=== PATIENT | female | born 1995 ===

== ENCOUNTER 2018-01-20 05:56 | Day surgery (SDC) | payer OTHER ==
[2018-01-20] MEDS ORDERED: Oxymetazoline 0.05% Nasal Spray (30 ml) NS ONE ×2 (06:46→07:49)
[2018-01-20] MEDS ORDERED: ceFAZolin 1 gm in NS 1 GM/100 ML BAG IVPB ONE (06:46)
[2018-01-20] MEDS ORDERED: Lidocaine/Epinephrine 1% 1:100000 10 ML IJ ONE (06:46)
[2018-01-20] MEDS ORDERED: Lactated Ringer's 1,000 ML IV ONE ×2 (07:30→09:45)
[2018-01-20] MEDS ORDERED: Acetaminophen-Codeine 300/30 mg Tab PO PRN (07:32)
[2018-01-20] MEDS ORDERED: Propofol 10 mg/ml Inj (20 ML) ONE (07:37)
[2018-01-20] MEDS ORDERED: Rocuronium 10 mg/ml (5 ml) ONE (07:37)
[2018-01-20] MEDS ORDERED: Dextrose 5%/0.45% NS 1,000 ML IV SCH (07:45)
[2018-01-20] MEDS ORDERED: Neostigmine Methylsulfate 3mg/3ml Syringe IV ONE (08:01)
[2018-01-20] MEDS ORDERED: HYDROmorphone 0.5 mg/0.5 ml ISec IVP PRN (09:13)
[2018-01-20 10:13] VITALS: RESP 15
[2018-01-20 11:04] VITALS: BP 112/56; PULSE 70; TEMP 97.8; O2SAT 100
--- NOTE | 2018-01-20 19:50 | OP ---
PROCEDURE DATE: 01/20/2018 PREOPERATIVE DIAGNOSES: Deviated septum, enlarged turbinates. POSTOPERATIVE DIAGNOSES Deviated septum, enlarged turbinates. PROCEDURE: Septoplasty, endoscopic bilateral inferior turbinate reduction. SIGNIFICANT FINDINGS: Deviated septum, enlarged turbinates. PROCEDURE: The patient was brought into the room, placed in supine position. Anesthesia initiated through an ET tube. The patient was draped in the usual manner. Afrin soaked pledgets were inserted into the nasal cavity, remained there for 5 minutes and removed. The septum was injected with lidocaine with epinephrine on both sides. A [place] Incision was made on the left and mucoperichondrial flap was raised. A vertical incision was made in the cartilage, leaving 0.5 cm anterior and superior strut and mucoperichondrial flap was raised on the other side. Deviated portion of the cartilage and bone was removed using forceps and chisel. Perforation was made in the flap on the left posteriorly, inferiorly in order to drain any possible hematoma. Quilting suture was used to suture the two flaps together and close the [place] incision. Next, a zero degree scope was inserted into the nasal cavity. The inferior turbinates were noted to be enlarged and reduced in size using scissors going from an inferior to superior, anterior to posterior direction on both sides, first on the left and then on the right. Bleeding was controlled using suction cautery on both sides. Splints were placed. The patient was taken off anesthesia and taken to the recovery room in stable manner. Red Jimenez MD
== END 2018-01-20 10:50 | disposition home or self-care (01) ==
LOC: C.SDS 05:56
PROVIDERS: ATTEND Otolaryngology
DX: J34.2 Deviated nasal septum (principal); J34.3 Hypertrophy of nasal turbinates
CPT/HCPCS: 30520; 30801; 88304; J0690; J2001; J2405; J2704; J2710; J2765; J3010; J7120

== ENCOUNTER 2018-03-15 18:09 | Emergency (ER) | payer OTHER ==
[2018-03-15 18:25] VITALS: TEMP 99.3; O2SAT 98
--- NOTE | 2018-03-15 19:46 | C.PDOC ---
Time Seen by Provider: 03/15/18 18:52 Chief Complaint (Nursing): Anxiety Past Medical History Vital Signs: Last Vital Signs Temp 99.3 F 03/15/18 18:19 Pulse 74 03/15/18 18:19 Resp 20 03/15/18 18:19 BP 132/80 03/15/18 18:19 Pulse Ox 98 03/15/18 18:19 - Medical History PMH: - Social History Hx Alcohol Use: No Hx Substance Use: No ED Course And Treatment O2 Sat by Pulse Oximetry: 98 Disposition - Disposition
--- NOTE | 2018-03-15 19:47 | C.PDOC ---
History Of Present Illness 22 y/o female presents to ED with c/o left sided sore throat and runny nose for 1 week. Patient states she became anxious while talking to boyfriend shortly before arrival and experienced tingling around mouth and fingers associated with palpitations. pt reports fingers on both hands cramped up, but this has since resolved. Patient states most symptoms subsided and only c/o mild tingling to fingers. Patient denies chest pain, fever, sob, or any other complaints at this time. no prior similar episodes. Time Seen by Provider: 03/15/18 18:52 Chief Complaint (Nursing): Anxiety History Per: Patient History/Exam Limitations: no limitations Onset/Duration Of Symptoms: Days Current Symptoms Are (Timing): Still Present Past Medical History Reviewed: Historical Data, Nursing Documentation, Vital Signs Vital Signs: Last Vital Signs Temp 99.3 F 03/15/18 18:19 Pulse 85 03/15/18 20:30 Resp 16 03/15/18 20:30 BP 125/85 03/15/18 20:30 Pulse Ox 98 03/16/18 16:38 - Medical History PMH: No Chronic Diseases Surgical History: No Surg Hx Family History: States: No Known Family Hx - Social History Hx Alcohol Use: No Hx Substance Use: No Review Of Systems Constitutional: Negative for: Fever, Chills ENT: Positive for: Throat Pain Cardiovascular: Positive for: Palpitations. Negative for: Chest Pain Respiratory: Negative for: Cough, Shortness of Breath Skin: Negative for: Rash Physical Exam - Physical Exam Appears: Non-toxic, No Acute Distress Skin: Warm, Dry, No Rash Head: Atraumatic, Normacephalic Eye(s): bilateral: Normal Inspection Ear(s): Bilateral: Normal Nose: No Discharge Oral Mucosa: Moist Throat: Erythema (mild), No Exudate, No Drooling Cardiovascular: Rhythm Regular Respiratory: Normal Breath Sounds, No Rales, No Rhonchi, No Wheezing Extremity: Normal ROM, Capillary Refill (<2 seconds), Other (no spasming to fingers, from bilateral hands) Neurological/Psych: Oriented x3, Normal Speech, Normal Cognition, Normal Motor, Normal Sensation, Other (minimal tingling to fingers) ED Course And Treatment O2 Sat by Pulse Oximetry: 98 (RA) Pulse Ox Interpretation: Normal Medical Decision Making Medical Decision Making: pt with uri symptoms x 1 week with anxiety attack today, with carpal pedal spasm. pt with resolved symptoms, neg rapid strep, will d/c home with supportive care and crc f/u. Disposition Counseled Patient/Family Regarding: Studies Performed, Diagnosis, Need For Followup, Rx Given - Disposition Referrals: Nico Love MD [Medical Doctor] - [facility] [Outside] Disposition: HOME/ ROUTINE Disposition Time: 20:19 Condition: GOOD Additional Instructions: Gargle with warm salty water for throat pain. Tylenol for pain. Follow up wiht your primary care doctor and also in [facility] for anxiety. Retur to ER for any worse symptoms. Prescriptions: Acetaminophen [Tylenol 325mg tab] 650 mg PO Q6 #30 tab Instructions: Viral Upper Respiratory Infection, Adult (DC), Anxiety, Adult (DC ) Forms: [facility] ([place]), General Discharge Instructions - Clinical Impression Clinical Impression: Upper respiratory infection, viral, Anxiety attack - PA / OPERATIONAL METEOROLOGIST / Resident Statement MD/DO has reviewed & agrees with the documentation as recorded. - Scribe Statement The provider has reviewed the documentation as recorded by the Scribcarmen Buckley All medical record entries made by the Veto were at my direction and personally dictated by me. I have reviewed the chart and agree that the record accurately reflects my personal performance of the history, physical exam, medical decision making, and the department course for this patient. I have also personally directed, reviewed, and agree with the discharge instructions and disposition.
[2018-03-15 20:30] VITALS: BP 125/85; PULSE 85; RESP 16
== END 2018-03-15 20:30 | disposition home or self-care (01) ==
LOC: C.ER 18:09
DX: J06.9 Acute upper respiratory infection, unspecified (principal); F41.9 Anxiety disorder, unspecified